=== PATIENT | male | born 1950 | race Two or more races ===

== ENCOUNTER 2019-02-23 22:28 | Emergency (ER) | payer OTHER ==
[~2019-02-23] VITALS: Ht 170.2 cm; Wt 90.7 kg
== END 2019-02-24 05:38 | disposition home or self-care (01) ==
LOC: ER 22:28
DX: J40 Bronchitis, not specified as acute or chronic (principal)

== ENCOUNTER 2021-06-06 13:59 | Emergency (ER) | payer OTHER ==
[~2021-06-06] VITALS: Ht 167.6 cm; Wt 110.2 kg
[2021-06-06] MEDS ORDERED: COZAAR50 MG PO (14:16)
[2021-06-06] MEDS ORDERED: NORVASC2.5 M1 PO (14:16)
[2021-06-06] MEDS ORDERED: GLIMEPIRIDE4 MG (14:17)
== END 2021-06-06 16:58 | disposition home or self-care (01) ==
LOC: ER 13:59
DX: R07.81 Pleurodynia (principal); M62.830 Muscle spasm of back

== ENCOUNTER 2023-06-07 08:55 | Outpatient (CLI) | payer OTHER ==
[~2023-06-07 08:55] MED LIST: COZAAR50 MG PO; GLIMEPIRIDE4 MG; NORVASC2.5 M1 PO
== END 2023-06-07 09:01 | disposition home or self-care (01) ==
LOC: SONOGRAMA 08:55
PROVIDERS: ATTEND Specialist
DX: C61 Malignant neoplasm of prostate (principal); R97.20 Elevated prostate specific antigen [PSA]

== ENCOUNTER 2024-02-09 12:45 | Inpatient (IN) | payer OTHER ==
[~2024-02-09] VITALS: Ht 167.6 cm; Wt 104.3 kg
[2024-02-09] MEDS ORDERED: SIMVASTATIN5 MG PO (14:42)
[2024-02-13] MEDS ORDERED: PERCOCET 5-3251 EACH PO (09:56)
[2024-02-13] MEDS ORDERED: COLACE100 MG PO (09:56)
[2024-02-13] MEDS ORDERED: MEDROLPACK PO (09:56)
[2024-02-13] MEDS ORDERED: ZOFRAN8 MG PO (09:56)
[2024-02-13] MEDS ORDERED: AMOX-CLAV 875-1 EACH PO (09:56)
[2024-02-13] MEDS ORDERED: GABAPENTIN100 M2 PO (09:57)
[2024-02-13] MEDS ORDERED: NEURONTIN800 MG PO (09:57)
[2024-02-13] MEDS ORDERED: ENALAPRILAT DIHYDRATE 1.25 MG/ML VIAL IV PRN (10:00)
[2024-02-13] MEDS ORDERED: 0.9 % SODIUM CHLORIDE 1,000 ML IV SCH (10:00)
[2024-02-13] MEDS ORDERED: PROMETHAZINE HCL 50 MG/ML AMPUL IM PRN (10:00)
[2024-02-13] MEDS ORDERED: CLINDAMYCIN PHOSPHATE 150 MG/ML (600mg) IV ONE (10:30)
[2024-02-13] MEDS ORDERED: VANCOMYCIN HCL 1,000 MG VIAL IR ONE ×2 (10:30)
[2024-02-13] MEDS ORDERED: METHYLPREDNISOLONE ACETATE 80 MG/ML VIAL IU ONE (10:30)
[2024-02-13] MEDS ORDERED: METHYLPREDNISOLONE SOD SUCC 125 MG VIAL IV ONE ×2 (10:30)
[2024-02-13] MEDS ORDERED: CEFAZOLIN SODIUM 1,000 MG VIAL IV ONE (10:30)
[2024-02-13] MEDS ORDERED: TRANEXAMIC ACID 100MG/1ML (1000MG) AMPUL IV ONE ×2 (11:45)
[2024-02-13] MEDS ORDERED: HEMOSTATIC MATRIX WITH THROMBIN KIT TOP ONE (11:45)
[2024-02-13] MEDS ORDERED: ACETAMINOPHEN 500 MG GEL..CAP PO SCH (12:00)
[2024-02-13] MEDS ORDERED: DOCUSATE SODIUM 100MG CAP PO SCH (13:00)
[2024-02-13] MEDS ORDERED: MORPHINE SULFATE 4 MG,MORPHINE SULFATE 2 MG IV SCH (13:00)
[2024-02-13] MEDS ORDERED: MORPHINE SULFATE 4 MG/ML VIAL IV ONE (13:35)
[2024-02-13] MEDS ORDERED: MORPHINE SULFATE 2 MG/ML CARTRIDGE IV ONE (14:05)
[2024-02-13 16:00] VITALS: BP 170/85; O2SAT 100
[2024-02-13 17:00] VITALS: O2SAT 93
[2024-02-13] MEDS ORDERED: FAMOtidine 20 MG TABLET PO SCH (17:00)
[2024-02-13] MEDS ORDERED: METHYLPREDNISOLONE SOD SUCC 125 MG VIAL IV SCH (17:00)
[2024-02-13] MEDS ORDERED: CEFAZOLIN SODIUM 1,000 MG in 0.9 % SODIUM CHLORIDE 50 ML IV SCH (17:00)
[2024-02-13] MEDS ORDERED: VANCOMYCIN HCL 1,000 MG VIAL IV SCH (21:00)
[2024-02-13] MEDS ORDERED: GABAPENTIN 800 MG TABLET PO SCH (21:00)
[2024-02-14] VITALS (7 sets, daily range): BP systolic 147–194; BP diastolic 78–92; O2SAT 92–98
[2024-02-14] MEDS ORDERED: SODIUM CHLORIDE 0.45 % 1,000 ML IV SCH
[2024-02-14] MEDS ORDERED: OxyCODONE HCL/APAP UD (PERCOCET) PO PRN (06:01)
[2024-02-14 07:01] LABS: HEMATOCRIT 42.4 % (39.0-48.0); HEMOGLOBIN 14.3 g/dL (13-16.00); MEAN CELL VOLUME 95.6 fL (80.0-100.00); MEAN CORPUSCULAR HEMOGLOBIN 32.3 pg (27.00-32.0); MEAN CORPUSCULAR HGB CONC 33.8 g/dl (32.0-36.0); PLATELET COUNT 176 K/uL (150-450); RED BLOOD COUNT 4.43 M/uL (4.00-6.00); RED CELL DISTRIBUTION WIDTH 15.1 % (11.5-14.5)
[2024-02-14 07:26] LABS: CALCIUM 9.1 mg/dL (8.5-10.1); CREATININE SERUM 0.79 mg/dL (0.70-1.30); GFR 96.41; POTASSIUM 4.66 mEq/L (3.5-5.1)
[2024-02-14] MEDS ORDERED: GLIPIZIDE 10 MG PO SCH (09:00)
[2024-02-14] MEDS ORDERED: LOSARTAN POTASSIUM 50 MG TABLET PO SCH ×2 (09:00)
[2024-02-14] MEDS ORDERED: AMLODIPINE BESYLATE 10 MG TABLET PO SCH (09:00)
[2024-02-14] MEDS ORDERED: TAMSULOSIN HCL 0.4 MG CAP PO SCH (09:00)
[2024-02-15 00:30] VITALS: BP 187/83; O2SAT 93
[2024-02-15 05:40] VITALS: O2SAT 97
[2024-02-15] MEDS ORDERED: LOSARTAN POTASSIUM 100 MG TABLET PO SCH (09:00)
[2024-02-15] MEDS ORDERED: hydrALAZINE HCL 50 MG TABLET PO SCH (09:00)
[2024-02-15 10:02] VITALS: BP 137/74; O2SAT 93
[2024-02-15 10:09] VITALS: O2SAT 95
[2024-02-15 12:00] VITALS: BP 144/84; O2SAT 93
== END 2024-02-15 19:00 | DRG 402 ==
LOC: O/R 02-13 06:16 → SURH 02-13 10:00
PROVIDERS: ADMIT Orthopaedic Surgery Orthopaedic Surgery of the Spine; ATTEND Orthopaedic Surgery Orthopaedic Surgery of the Spine
PROC: 0SG0071 Fusion of Lumbar Vertebral Joint with Autologous Tissue Substitute, Posterior Approach, Posterior Column, Open Approach (ICD-10-PCS; 2024-02-13)
PROC: 0ST20ZZ Resection of Lumbar Vertebral Disc, Open Approach (ICD-10-PCS; 2024-02-13)
PROC: 0QB30ZZ Excision of Left Pelvic Bone, Open Approach (ICD-10-PCS; 2024-02-13)
PROC: 07DR0ZZ Extraction of Iliac Bone Marrow, Open Approach (ICD-10-PCS; 2024-02-13)
PROC: 4A1104G Monitoring of Peripheral Nervous Electrical Activity, Intraoperative, Open Approach (ICD-10-PCS; 2024-02-13)
PROC: 4A12X4Z Monitoring of Cardiac Electrical Activity, External Approach (ICD-10-PCS; 2024-02-13)
PROC: XRGB0R7 Fusion of Lumbar Vertebral Joint using Custom-Made Anatomically Designed Interbody Fusion Device, Open Approach, New Technology Group 7 (ICD-10-PCS; principal; 2024-02-13 10:00)
DX: M43.16 Spondylolisthesis, lumbar region (principal); M48.062 Spinal stenosis, lumbar region with neurogenic claudication; E11.9 Type 2 diabetes mellitus without complications; Z79.4 Long term (current) use of insulin; I10 Essential (primary) hypertension

== ENCOUNTER 2024-02-22 10:24 | Emergency (ER) | payer OTHER ==
[~2024-02-22] VITALS: Ht 167.6 cm; Wt 104.3 kg
[~2024-02-22 10:24] MED LIST changes: +AMOX-CLAV 875-1 EACH PO; +COLACE100 MG PO; +GABAPENTIN100 M2 PO; +MEDROLPACK PO; +NEURONTIN800 MG PO; +PERCOCET 5-3251 EACH PO; +SIMVASTATIN5 MG PO; +ZOFRAN8 MG PO
== END 2024-02-22 18:14 | disposition home or self-care (01) ==
LOC: ER 10:24
DX: M79.605 Pain in left leg (principal)

== ENCOUNTER 2025-01-07 13:48 | Emergency (ER) | payer OTHER ==
[~2025-01-07] VITALS: Ht 167.6 cm; Wt 97.5 kg
[2025-01-07] MEDS ORDERED: 0.9 % SODIUM CHLORIDE 500 ML IV ONE (15:30)
[2025-01-07] MEDS ORDERED: GUAIFENESIN/DEXTROMETHORPHAN 100MG/10ML BLIST.PACK PO ONE (15:30)
[2025-01-07] MEDS ORDERED: GUAIFEN/DEXTROMETHORPHAN/PE 10 ML BLIST.PACK PO ONE (15:43)
[2025-01-07 16:55] LABS: ALT/SGPT 25.0 U/L (12-78); AST/SGOT 13.0 U/L (15-37); BILIRUBIN TOTAL 0.52 mg/dL (0.3-1.2); BUN CREA RATIO 20.0 (7.0-25.0); CREATININE SERUM 0.89 mg/dL (0.70-1.30); GFR 83.79; GLOBULINA 3.0 G/DL (2.4-3.5); GLUCOSE FASTING 101.0 mg/dL (65-100); OSMOLALITY SERUM 285.0 MOSM/KG (275-295)
[2025-01-07 16:56] LABS: COVID-19 AG NEGATIVE (NEGATIVE)
[2025-01-07 20:14] LABS: URINE APPEARANCE Clear; URINE BILIRRUBIN Negative (NEGATIVE); URINE BLOOD Trace; URINE COLOR Yellow; URINE GLUCOSE Negative (NEGATIVE); URINE KETONE Negative (NEGATIVE); URINE LEUKOCYTE Negative; URINE NITRATE Negative; URINE PROTEIN 30 (NEGATIVE); URINE UROBILINOGEN 0.2 E.U./dl
[2025-01-07 20:15] LABS: URINE BACTERIA 44.4 uL (0.0-1933); URINE EPITHELIAL CELLS 9.0 uL (0.0-38.8); URINE WBC 11.3 uL (0.0-23.2)
[2025-01-07 20:18] LABS: URINE CAST 0.43 uL (0.0-1.40); URINE RBC 0.5 uL (0.0-20.8)
[2025-01-07 20:51] LABS: BASO % 0.3 % (0.1-1.2); EOS # 0.08 (0.04-0.54); EOS % 0.9 % (0.7-7.0); LYMPH # 1.47 (1.18-3.74); LYMPH % 16.2 % (19.3-53.1); MEAN PLATELET VOLUME 9.30 fl (9.4-12.4); MONO # 0.65 (0.24-0.82); MONO % 7.2 % (4.7-12.5); NEUT # 6.73 (1.56-6.13); NEUT % 74.4 % (34.0-71.1); RED CELL DISTRIBUTION WIDTH 14.8 % (11.6-14.4)
[2025-01-07] MEDS ORDERED: DIABETIC TUSSI118 M3 PO (21:38)
[2025-01-07] MEDS ORDERED: MECLIZINE HCL25 MG PO (21:45)
[2025-01-07] MEDS ORDERED: MECLIZINE HCL 25 MG TABLET PO ONE ×2 (22:00→22:05)
== END 2025-01-07 22:25 | disposition home or self-care (01) ==
LOC: ER 13:48
PROVIDERS: General Practice
DX: R42 Dizziness and giddiness (principal); R53.81 Other malaise; R53.1 Weakness; R05.9 Cough, unspecified; Z20.822 Contact with and (suspected) exposure to COVID-19; I10 Essential (primary) hypertension; E11.9 Type 2 diabetes mellitus without complications
CPT/HCPCS: 36415; 70450; 71046; 93005; 96365; 96366; 99284; J7030

== ENCOUNTER 2025-03-04 07:00 | Inpatient (IN) | payer OTHER ==
[2025-02-26 13:29] LABS: COVID-19 AG NEGATIVE (NEGATIVE)
[~2025-03-04] VITALS: Ht 182.9 cm; Wt 104.3 kg
[~2025-03-04 07:00] MED LIST changes: +DIABETIC TUSSI118 M3 PO; +MECLIZINE HCL25 MG PO
[2025-03-04] MEDS ORDERED: VANCOMYCIN HCL 1,000 MG VIAL ONE ×3 (07:50→15:36)
[2025-03-04] MEDS ORDERED: CEFAZOLIN SODIUM 1,000 MG VIAL ONE (07:51)
[2025-03-04] MEDS ORDERED: IOVERSOL 320 MG/ML - 50 ML VIAL IV ONE (10:50)
[2025-03-04] MEDS ORDERED: METHYLPREDNISOLONE SOD SUCC 125 MG VIAL ONE ×4 (10:50→18:43)
[2025-03-04] MEDS ORDERED: MEDROLPACK PO (11:03)
[2025-03-04] MEDS ORDERED: PERCOCET 5-3251 EACH PO (11:03)
[2025-03-04] MEDS ORDERED: COLACE100 MG PO (11:03)
[2025-03-04] MEDS ORDERED: ZOFRAN8 MG PO (11:06)
[2025-03-04] MEDS ORDERED: METHYLPREDNISOLONE ACETATE 80 MG/ML VIAL ONE (15:33)
[2025-03-04] MEDS ORDERED: PROMETHAZINE HCL 50 MG/ML AMPUL IM PRN (16:00)
[2025-03-04] MEDS ORDERED: 0.9 % SODIUM CHLORIDE 1,000 ML IV SCH (16:00)
[2025-03-04] MEDS ORDERED: ENALAPRILAT DIHYDRATE 1.25 MG/ML VIAL IV PRN (16:00)
[2025-03-04] MEDS ORDERED: CEFAZOLIN SODIUM 1,000 MG in 0.9 % SODIUM CHLORIDE 50 ML IV SCH (17:00)
[2025-03-04] MEDS ORDERED: DOCUSATE SODIUM 100MG CAP PO SCH (17:00)
[2025-03-04] MEDS ORDERED: METHYLPREDNISOLONE SOD SUCC 125 MG VIAL IV SCH (17:00)
[2025-03-04] MEDS ORDERED: MORPHINE SULFATE 4 MG/ML CARTRIDGE IV SCH (17:00)
[2025-03-04] MEDS ORDERED: HEMOSTATIC MATRIX 1 KIT KIT TOP ONE (17:17)
[2025-03-04] MEDS ORDERED: HEMOSTATIC MATRIX WITH THROMBIN KIT TOP ONE ×2 (17:18→18:34)
[2025-03-04] MEDS ORDERED: CEFAZOLIN SODIUM 1,000 MG VIAL IV ONE (17:45)
[2025-03-04] MEDS ORDERED: VANCOMYCIN HCL 1,000 MG VIAL IR ONE (17:45)
[2025-03-04] MEDS ORDERED: METHYLPREDNISOLONE ACETATE 80 MG/ML VIAL IM ONE (18:00)
[2025-03-04] MEDS ORDERED: ACETAMINOPHEN 500 MG GEL..CAP PO SCH (20:00)
[2025-03-04] MEDS ORDERED: VANCOMYCIN HCL 1,000 MG VIAL IV SCH (21:00)
[2025-03-04 22:37] VITALS: BP 173/81; O2SAT 91
[2025-03-04 23:00] VITALS: O2SAT 94
[2025-03-05] MEDS ORDERED: SODIUM CHLORIDE 0.45 % 1,000 ML IV SCH
[2025-03-05 00:37] VITALS: BP 149/81; O2SAT 96
[2025-03-05] MEDS ORDERED: OxyCODONE HCL 5 MG TABLET (ROXICODONE) PO SCH (06:01)
[2025-03-05] MEDS ORDERED: VANCOMYCIN HCL 1,000 MG VIAL ONE ×2 (07:14→15:55)
[2025-03-05 08:42] VITALS: BP 148/88; O2SAT 94
[2025-03-05] MEDS ORDERED: GLIPIZIDE 10 MG TABLET PO SCH (09:00)
[2025-03-05] MEDS ORDERED: LOSARTAN POTASSIUM 50 MG TABLET PO SCH (09:00)
[2025-03-05] MEDS ORDERED: AMLODIPINE BESYLATE 5 MG TABLET PO SCH (09:00)
[2025-03-05] MEDS ORDERED: TAMSULOSIN HCL 0.4 MG CAP PO SCH (09:00)
[2025-03-05 15:59] VITALS: BP 127/70; O2SAT 95
[2025-03-05 16:11] VITALS: O2SAT 93
[2025-03-05 21:23] VITALS: O2SAT 92
[2025-03-06] VITALS: BP 171/95; O2SAT 94
[2025-03-06 00:22] VITALS: O2SAT 93
[2025-03-06 04:00] VITALS: O2SAT 93
[2025-03-06 08:00] VITALS: BP 166/99; O2SAT 95
[2025-03-06 12:09] VITALS: O2SAT 97
[2025-03-06 12:13] VITALS: O2SAT 90
== END 2025-03-06 12:00 | disposition home or self-care (01) | DRG 473 ==
LOC: CIR.AMB 07:00 → SURG 20:42
PROVIDERS: ADMIT Orthopaedic Surgery Orthopaedic Surgery of the Spine; ATTEND Orthopaedic Surgery Orthopaedic Surgery of the Spine
PROC: 0RT30ZZ Resection of Cervical Vertebral Disc, Open Approach (ICD-10-PCS; 2025-03-04)
PROC: 07DS0ZZ Extraction of Vertebral Bone Marrow, Open Approach (ICD-10-PCS; 2025-03-04)
PROC: 0RG2070 Fusion of 2 or more Cervical Vertebral Joints with Autologous Tissue Substitute, Anterior Approach, Anterior Column, Open Approach (ICD-10-PCS; principal; 2025-03-04 10:00)
PROC: 4A12X4Z Monitoring of Cardiac Electrical Activity, External Approach (ICD-10-PCS; 2025-03-05)
DX: M50.021 Cervical disc disorder at C4-C5 level with myelopathy (principal); M50.022 Cervical disc disorder at C5-C6 level with myelopathy; M50.023 Cervical disc disorder at C6-C7 level with myelopathy